=== PATIENT | female | born 1935 | race Caucasian/White ===

== ENCOUNTER 2017-02-28 13:30 | Emergency (ER) | payer MEDICARE ==
[~2017-02-28] VITALS: Ht 167.6 cm; Wt 68.0 kg
[~2017-02-28 13:30] MED LIST: ASPI81 PO; ATEN1TAB75; GLUCTAB PO; GLYB1TAB51 PO; LISI10TA PO; PROVASTATIN PO; TAB-TAB PO; co q 10 PO
[2017-02-28 14:02] VITALS: BP 151/68; PULSE 62; RESP 16; TEMP 98.3; O2SAT 92
[2017-02-28] MEDS ORDERED: ATEN100T PO ×2 (14:22→19:19)
[2017-02-28] MEDS ORDERED: ASPI81CH CHEW (14:22)
[2017-02-28] MEDS ORDERED: LISI10TA PO (14:23)
[2017-02-28] MEDS ORDERED: GLYB5TAB3 PO ×2 (14:23→19:19)
[2017-02-28] MEDS ORDERED: GLUCTAB PO (14:24)
--- NOTE | 2017-02-28 14:34 | PD ---
HPI Chief Complaint: Abnormal Results Time Seen by Provider: 14:19 Travel History International Travel<30 days: No Contact w/Intl Traveler<30days: No Traveled to known affect area: No History of Present Illness HPI This 81-year-old female was sent by Dr. Cabello is of a high potassium level. This lady is being treated for a urinary tract infection. She says she's been on medication for about 2 weeks. He was on Cipro for the first 3 or 4 days. The Cipro apparently is not working and she was changed to Bactrim. She is taken all except for 3 act from pills she had blood work done yesterday which showed her potassium to be 6.3. She was told to drink lots of fluids which she says she did. The blood was rechecked today and it was 6.6. She says that she has stage III kidney disease secondary to diabetes. She says that the burning and frequency which she had with a urinary tract infection has improved. She is on lisinopril and atenolol for hypertension, glyburide and metformin for diabetes PFSH Past Medical History Anemia: Yes Heart Rhythm Problems: No Cancer: No Cardiac Catheterization: No Cardiovascular Problems: No High Cholesterol: No Congestive Heart Failure: No Diabetes: No Diminished Hearing: No Glaucoma: No Hepatitis: No Hiatal Hernia: No Hypertension: No Medical other: Yes (acid reflux) Myocardial Infarction: No Thyroid Disease: No Tetanus Vaccination: Unknown Influenza Vaccination: Yes Past Surgical History Coronary Artery Bypass Graft: No Eye Surgery: Yes (x2 vlad eye lid surgery) Pacemaker: No Other Surgery: Yes Social History Alcohol Use: No Tobacco Use: No Substance Use: No Allergies-Medications (Allergen,Severity, Reaction): Coded Allergies: Procardia (Verified Allergy, Severe, RACING HEART/FACIAL FLUSHING, 02/28/17 ) Reported Meds & Prescriptions Reported Meds & Active Scripts Active Reported Glucophage XR (Metformin HCl) 500 Mg Melania 500 Mg PO DAILY With evening meal Lisinopril-Hctz 10-12.5 Mg Tab 1 Tab PO DAILY Glyburide 5 Mg Tab 5 Mg PO DAILY Take with meals at the same time each day Aspirin 81 Mg Chew 81 Mg CHEW DAILY Atenolol 100 Mg Tab 100 Mg PO BID Review of Systems General / Constitutional: No: Fever, Chills Eyes: No: Diploplia, Blurred Vision HENT: No: Headaches, Vertigo Cardiovascular: No: Chest Pain or Discomfort, Palpitations Respiratory: No: Cough, Shortness of Breath Gastrointestinal: No: Nausea, Vomiting Genitourinary: Positive: Frequency Musculoskeletal: No: Myalgias, Arthralgias Physical Exam Narrative GENERAL: [-] SKIN: Focused skin assessment warm/dry. HEAD: Atraumatic. Normocephalic. EYES: Pupils equal and round. No scleral icterus. No injection or drainage. ENT: No nasal bleeding or discharge. Mucous membranes pink and moist. NECK: Trachea midline. No JVD. CARDIOVASCULAR: Regular rate and rhythm. No murmur appreciated. RESPIRATORY: No accessory muscle use. Clear to auscultation. Breath sounds equal bilaterally. GASTROINTESTINAL: Abdomen soft, non-tender, nondistended. Hepatic and splenic margins not palpable. MUSCULOSKELETAL: No obvious deformities. No clubbing. No cyanosis. No edema. NEUROLOGICAL: Awake and alert. No obvious cranial nerve deficits. Motor grossly within normal limits. Normal speech. PSYCHIATRIC: Appropriate mood and affect; insight and judgment normal. Data Data Last Documented VS Vital Signs Date Time Temp Pulse Resp B/P Pulse Ox O2 Delivery O2 Flow Rate FiO2 02/28/17 14:25 16 99 Room Air 02/28/17 14:02 98.3 62 151/68 Orders Electrocardiogram (02/28/17 14:31) Complete Blood Count With Diff (02/28/17 14:31) Basic Metabolic Panel (Bmp) (02/28/17 14:31) Urinalysis - C+S If Indicated (02/28/17 14:31) Sodium Chlorid 0.9% 500 Ml Inj (Ns 500 M (02/28/17 14:45) Sodium Polysty Sulfate Liq (Kayexalate L (02/28/17 15:30) Sorbitol 70% Liq (Sorbitol 70% Liq) (02/28/17 15:30) Insulin Human Regular Inj (Novolin R Inj (02/28/17 15:30) Furosemide Inj (Lasix Inj) (02/28/17 15:30) Urine Culture (02/28/17 15:10) Dextrose 50% In Jarred (Vial) Inj (D50w (Vi (02/28/17 15:45) Labs Laboratory Tests Test 4/20/17 4/20/17 14:27 15:10 White Blood Count 7.5 TH/MM3 Red Blood Count 4.28 MIL/MM3 Hemoglobin 13.1 GM/DL Hematocrit 39.4 % Mean Corpuscular Volume 92.0 FL Mean Corpuscular Hemoglobin 30.7 PG Mean Corpuscular Hemoglobin 33.4 % Concent Red Cell Distribution Width 13.0 % Platelet Count 230 TH/MM3 Mean Platelet Volume 8.6 FL Neutrophils (%) (Auto) 64.0 % Lymphocytes (%) (Auto) 28.3 % Monocytes (%) (Auto) 5.0 % Eosinophils (%) (Auto) 2.3 % Basophils (%) (Auto) 0.4 % Neutrophils # (Auto) 4.8 TH/MM3 Lymphocytes # (Auto) 2.1 TH/MM3 Monocytes # (Auto) 0.4 TH/MM3 Eosinophils # (Auto) 0.2 TH/MM3 Basophils # (Auto) 0.0 TH/MM3 CBC Comment DIFF FINAL Differential Comment Sodium Level 134 MEQ/L Potassium Level 6.5 MEQ/L Chloride Level 102 MEQ/L Carbon Dioxide Level 26.5 MEQ/L Anion Gap 6 MEQ/L Blood Urea Nitrogen 24 MG/DL Creatinine 1.40 MG/DL Estimat Glomerular Filtration 36 ML/MIN Rate Random Glucose 299 MG/DL Calcium Level 10.0 MG/DL Urine Color YELLOW Urine Turbidity CLEAR Urine pH 6.0 Urine Specific [place] 1.012 Urine Protein NEG mg/dL Urine Glucose (UA) 100 mg/dL Urine Ketones NEG mg/dL Urine Occult Blood NEG Urine Nitrite NEG Urine Bilirubin NEG Urine Leukocyte Esterase MOD Urine RBC 0-3 /hpf Urine WBC 15-19 /hpf Urine WBC Clumps FEW Urine Squamous Epithelial 0-5 /hpf Cells Urine Bacteria RARE /hpf Microscopic Urinalysis Comment CULTURE INDICATED [facility] Medical Decision Making Medical Screen Exam Complete: Yes Emergency Medical Condition: Yes Medical Record Reviewed: Yes Differential Diagnosis dIFFERENTIAL includes hyperkalemia, renal failure, Narrative Course Potassium today is 6.5. EKG shows a sinus rhythm there are t waves. She has been given fluids and Lasix. Case discussed with Dr. Colon Diagnosis Primary Impression: Hyperkalemia Hector Khan MD Feb 28, 2017 14:34 Hector Khan MD Feb 28, 2017 14:34
[2017-02-28] MEDS ORDERED: SODIUM CHLORID 0.9% 500 ML INJ 500 ML IV ONE ×2 (14:45→16:30)
[2017-02-28 15:14] LABS: AUTOMATED NEUTROPHIL # 4.8 TH/MM3 (1.8-7.7); BASOPHIL % 0.4 % (0.0-2.0); EOSINOPHIL # 0.2 TH/MM3 (0-0.4); EOSINOPHIL % 2.3 % (0.0-4.0); HEMATOCRIT 39.4 % (35.0-46.0); HEMO FLAGS DIFF FINAL; LYMPH % 28.3 % (9.0-44.0); LYMPHOCYTE # 2.1 TH/MM3 (1.0-4.8); MEAN CORPUSCULAR HEMOGLOBIN 30.7 PG (27.0-34.0); MEAN CORPUSCULAR HGB CONC 33.4 % (32.0-36.0); PLATELET COUNT 230 TH/MM3 (150-450); RED BLOOD COUNT 4.28 MIL/MM3 (4.00-5.30); WHITE BLOOD COUNT 7.5 TH/MM3 (4.0-11.0)
[2017-02-28 15:21] LABS: POTASSIUM 6.5 MEQ/L (3.5-5.1)
[2017-02-28 15:21] LABS: BLOOD, URINE NEG (NEG); GLUCOSE,URINE 100 mg/dL (NEG); KETONE, URINE NEG (NEG); NITRITE,URINE NEG (NEG)
[2017-02-28 15:25] LABS: BICARBONATE 26.5 MEQ/L (21.0-32.0)
[2017-02-28] MEDS ORDERED: INSULIN HUMAN REGULAR 1,000 UNITS/10 ML VIAL SQ ONE (15:30)
[2017-02-28] MEDS ORDERED: SORBITOL 70% SOLN 30 ML CUP PO ONE (15:30)
[2017-02-28] MEDS ORDERED: DEXTROSE 50% IN WATER 50 ML SYRINGE IV ONE (15:30)
[2017-02-28] MEDS ORDERED: FUROSEMIDE 20 MG/2 ML VIAL IV PUSH ONE (15:30)
[2017-02-28] MEDS ORDERED: SODIUM POLYSTYRENE SULFONATE SUSP 15 GM/60 ML CUP PO ONE (15:30)
[2017-02-28 15:34] LABS: URINE COLOR YELLOW (YELLW/STRAW)
[2017-02-28 15:36] LABS: BACTERIA, URINE RARE /hpf; COMMENT (UR) CULTURE INDICATED; CULTURE IF INDICATED CULTURE INDICATED; RBC, URINE 0-3 /hpf (0-3); SQUAMOUS EPITHELIAL CELL URINE 0-5 /hpf (0-5); WBC, URINE 15-19 /hpf (0-5)
[2017-02-28] MEDS ORDERED: DEXTROSE 50% IN WATER 50 ML VIAL(D50) IV PUSH ONE (15:45)
[2017-02-28 16:27] VITALS: BP 146/65; PULSE 61; RESP 15; O2SAT 99
--- NOTE | 2017-02-28 16:27 | HHI.PR ---
Subjective Remarks Pt examined in ER. She was sent by PCP for elevated K+ of 6.6 with renal insuff as outpt. Of note she has been on Cipro for a couple of days followed by Bactrim for appx 5 days due to UTI. UTI symptoms have been responding to abx, but she was noted to have some renal insuff with K+ 6.3 yesterday. Repeat K+ 6.6 today as outpt. She was thus sent to ER. She denies palpitations, CP or other cardiac symptoms. Still has some slight dysuria. Pt also on LEVI-I. She has been given IVF, insulin, D5, Kayexalate and lasix in ER per ER MD. She appears quite comfortable. Objective Vitals GENERAL: nad, a/o, cooperative. SKIN: Warm and dry. HEAD: Normocephalic. EYES: No scleral icterus. No injection or drainage. chronic ptosis right, ectropion left NECK: Supple, trachea midline. No JVD or lymphadenopathy. CARDIOVASCULAR: Regular rate and rhythm without murmurs, gallops, or rubs. RESPIRATORY: Breath sounds equal bilaterally. No accessory muscle use. GASTROINTESTINAL: Abdomen soft, non-tender, nondistended. MUSCULOSKELETAL: No cyanosis, or edema. BACK: Nontender without obvious deformity. No CVA tenderness. Vital Signs Date Time Temp Pulse Resp B/P Pulse Ox O2 Delivery O2 Flow Rate FiO2 02/28/17 14:25 16 99 Room Air 02/28/17 14:02 98.3 62 16 151/68 92 Result Diagram: 02/28/17 1427 02/28/17 1427 Urinary Catheter: No Vascular Central Line Catheter: No A/P Problem List: (1) Hyperkalemia Status: Acute Plan: Likely due to Bactrim induced TOBIAS and use of LEVI-I. No symptoms and EKG OK. Will try more IVF and repeat K+ in a few hrs. If improved, will d/c from ER with close outpt f/u with PCP. Case d/w Dr Avina and Dr Nurys Guerrier. Farzad Colon MD PhD Feb 28, 2017 16:27
[2017-02-28 18:42] VITALS: BP 137/55; PULSE 63; RESP 15
[2017-02-28 19:07] LABS: BICARBONATE 27.3 MEQ/L (21.0-32.0); POTASSIUM 5.3 MEQ/L (3.5-5.1)
[2017-02-28 19:10] VITALS: BP 118/71; PULSE 69; RESP 15; O2SAT 95
--- NOTE | 2017-02-28 19:22 | PD ---
Physical Exam Date Seen by Provider: Feb 28, 2017 Time Seen by Provider: 16:15 Narrative Pt seen and examined per progress note. F/U labs improved including K+ of 5.3 and Cr 1.3. Discussed with Dr Guerrier and Dr Cabello. Pt has appt with Dr Cabello tomorrow at 9:15 AM. Data Data Last Documented VS Vital Signs Date Time Temp Pulse Resp B/P Pulse Ox O2 Delivery O2 Flow Rate FiO2 02/28/17 19:10 69 15 118/71 95 Room Air 02/28/17 14:02 98.3 Orders Electrocardiogram (02/28/17 14:31) Complete Blood Count With Diff (02/28/17 14:31) Basic Metabolic Panel (Bmp) (02/28/17 14:31) Urinalysis - C+S If Indicated (02/28/17 14:31) Sodium Chlorid 0.9% 500 Ml Inj (Ns 500 M (02/28/17 14:45) Sodium Polysty Sulfate Liq (Kayexalate L (02/28/17 15:30) Sorbitol 70% Liq (Sorbitol 70% Liq) (02/28/17 15:30) Insulin Human Regular Inj (Novolin R Inj (02/28/17 15:30) Furosemide Inj (Lasix Inj) (02/28/17 15:30) Urine Culture (02/28/17 15:10) Dextrose 50% In Jarred (Vial) Inj (D50w (Vi (02/28/17 15:45) Sodium Chlorid 0.9% 500 Ml Inj (Ns 500 M (02/28/17 16:30) Basic Metabolic Panel (Bmp) (02/28/17 18:30) Labs Laboratory Tests Test 02/28/17 02/28/17 02/28/17 14:27 15:10 18:25 White Blood Count 7.5 TH/MM3 Red Blood Count 4.28 MIL/MM3 Hemoglobin 13.1 GM/DL Hematocrit 39.4 % Mean Corpuscular Volume 92.0 FL Mean Corpuscular Hemoglobin 30.7 PG Mean Corpuscular Hemoglobin 33.4 % Concent Red Cell Distribution Width 13.0 % Platelet Count 230 TH/MM3 Mean Platelet Volume 8.6 FL Neutrophils (%) (Auto) 64.0 % Lymphocytes (%) (Auto) 28.3 % Monocytes (%) (Auto) 5.0 % Eosinophils (%) (Auto) 2.3 % Basophils (%) (Auto) 0.4 % Neutrophils # (Auto) 4.8 TH/MM3 Lymphocytes # (Auto) 2.1 TH/MM3 Monocytes # (Auto) 0.4 TH/MM3 Eosinophils # (Auto) 0.2 TH/MM3 Basophils # (Auto) 0.0 TH/MM3 CBC Comment DIFF FINAL Differential Comment Sodium Level 134 MEQ/L 138 MEQ/L Potassium Level 6.5 MEQ/L 5.3 MEQ/L Chloride Level 102 MEQ/L 105 MEQ/L Carbon Dioxide Level 26.5 MEQ/L 27.3 MEQ/L Anion Gap 6 MEQ/L 6 MEQ/L Blood Urea Nitrogen 24 MG/DL 22 MG/DL Creatinine 1.40 MG/DL 1.30 MG/DL Estimat Glomerular Filtration 36 ML/MIN 39 ML/MIN Rate Random Glucose 299 MG/DL 159 MG/DL Calcium Level 10.0 MG/DL 9.4 MG/DL Urine Color YELLOW Urine Turbidity CLEAR Urine pH 6.0 Urine Specific [place] 1.012 Urine Protein NEG mg/dL Urine Glucose (UA) 100 mg/dL Urine Ketones NEG mg/dL Urine Occult Blood NEG Urine Nitrite NEG Urine Bilirubin NEG Urine Leukocyte Esterase MOD Urine RBC 0-3 /hpf Urine WBC 15-19 /hpf Urine WBC Clumps FEW Urine Squamous Epithelial 0-5 /hpf Cells Urine Bacteria RARE /hpf Microscopic Urinalysis Comment CULTURE INDICATED MDM Medical Record Reviewed: Yes Supervised Visit with FOREST: No Physician Communication Physician Communication Discussed with Dr Guerrier, Dr Avina and Dr Cabello Diagnosis Primary Impression: Hyperkalemia Additional Impression: TOBIAS (acute kidney injury) Patient Instructions: 4 Gram Sodium Diet (GEN), General Instructions, Hyperkalemia (ED) Departure Forms: Tests/Procedures Additional Instruction: See Dr Cabello tomorrow AM at 9:15. She may want to add different antibiotic. Hold lisinopril. Observe low potassium diet. Scripts Glyburide 5 Mg Tab5 Mg PO DAILY #30 TAB Ref 0 Take with meals at the same time each day Prov:Farzad Colon MD PhD 02/28/17 Atenolol 100 Mg [id number] Mg PO BID #60 TAB Ref 0 Prov:Farzad Colon MD PhD 02/28/17 Disposition: 01 DISCHARGE HOME Condition: Stable Farzad Colon MD PhD Feb 28, 2017 19:22
[2017-02-28 20:44] VITALS: BP 116/72
--- NOTE | 2017-03-01 18:55 | EKG ---
Date Performed: 02/28/2017 Time Performed: 14:51:06 PTAGE: 81 years EKG: Sinus rhythm with borderline 1st degree A-V block Left axis deviation Poor R wave progression - probable normal v ariant Inferior and anterior T wave changes are nonspecific Low QRS voltages in precordial leads Bord polo ECG Compared to prior tracing no significant change PREVIOUS TRACING : 03/07/2010 09.38 DOCTOR: Tj Staples Interpretating Date/Time 03/01/2017 18:54:05
== END 2017-02-28 20:30 | disposition home or self-care (01) ==
LOC: PHED 13:30
DX: E87.5 Hyperkalemia (principal); N17.9 Acute kidney failure, unspecified; E11.9 Type 2 diabetes mellitus without complications; N18.3 Chronic kidney disease, stage 3 (moderate); N39.0 Urinary tract infection, site not specified; I10 Essential (primary) hypertension; Z79.84 Long term (current) use of oral hypoglycemic drugs; D64.9 Anemia, unspecified; K21.9 Gastro-esophageal reflux disease without esophagitis; I44.0 Atrioventricular block, first degree
CPT/HCPCS: 80048; 81001; 85025; 87086; 93005; 96361; 96372; 96374; 96375; 99285; J1815; J1940; J7040

== ENCOUNTER 2018-04-14 11:04 | Emergency (ER) | payer MEDICARE, OTHER ==
[~2018-04-14] VITALS: Ht 167.6 cm; Wt 65.0 kg
[~2018-04-14 11:04] MED LIST changes: +ASPI-516 CHEW; -ASPI81 PO; +ATEN100T PO; -ATEN1TAB75; -GLUCTAB PO; -GLYB1TAB51 PO; +GLYB5TAB3 PO; -LISI10TA PO; -PROVASTATIN PO; -TAB-TAB PO; -co q 10 PO
[2018-04-14 11:07] VITALS: BP 164/70; PULSE 78; RESP 16; TEMP 97.5; O2SAT 94
[2018-04-14] MEDS ORDERED: METF1000 PO (11:18)
[2018-04-14] MEDS ORDERED: GLIP5TAB8 PO (11:18)
[2018-04-14] MEDS ORDERED: CHOLESTEROL MED (11:18)
[2018-04-14] MEDS ORDERED: LEVO25TA4 PO (11:18)
[2018-04-14] MEDS ORDERED: HYDR12.57 PO (11:18)
--- NOTE | 2018-04-14 11:41 | PD ---
HPI Chief Complaint: Foreign Body Time Seen by Provider: 11:22 Travel History International Travel<30 days: No Contact w/Intl Traveler<30days: No Traveled to known affect area: No History of Present Illness HPI 82 old female here with right heel pain. Patient reports this morning she noticed while walking she has mild right heel pain only with weightbearing. She has history of diabetic neuropathy and is concerned she may have stepped on something and has a retained foreign body. No fever chills. No swelling of the foot. Pain is produced with weightbearing only in the heel and resolved with rest. She was told in the past that lateral foot wound should be looked at because of her diabetes before she came in. PFSH Past Medical History Hx Anticoagulant Therapy: No Anemia: Yes Heart Rhythm Problems: No Cancer: No Cardiac Catheterization: No Cardiovascular Problems: Yes (HTN, CHOL) High Cholesterol: No Congestive Heart Failure: No Diabetes: Yes Patient Takes Glucophage: Yes Diminished Hearing: No Glaucoma: No Hepatitis: No Hiatal Hernia: No Hypertension: No Medical other: Yes (acid reflux) Immunizations Current: Yes Myocardial Infarction: No Thyroid Disease: No ?: Not Past Surgical History Coronary Artery Bypass Graft: No Eye Surgery: Yes (x2 vlad eye lid surgery) Pacemaker: No Other Surgery: Yes Social History Alcohol Use: No Tobacco Use: No Substance Use: No Allergies-Medications (Allergen,Severity, Reaction): Coded Allergies: nifedipine (Unverified Allergy, Severe, RACING HEART/FACIAL FLUSHING, ) Reported Meds & Prescriptions Reported Meds & Active Scripts Active Atenolol 100 Mg Tab 100 Mg PO BID Reported [Cholesterol Med] Levothyroxine (Levothyroxine Sodium) 25 Mcg Tab Unknown Dose PO DAILY Hydrochlorothiazide 12.5 Mg Cap Unknown Dose PO DAILY Glipizide 5 Mg Tab Unknown Dose PO BIDAC Take 30 minutes before a meal Metformin (Metformin HCl) 1,000 Mg Tab 1,000 Mg PO BIDPC Review of Systems Except as stated in HPI: all other systems reviewed are Neg General / Constitutional: No: Fever Physical Exam Narrative GENERAL: Alert and well-appearing 82-year-old female. SKIN: Warm and dry. HEAD: Normocephalic. EYES: No injection or drainage. NECK: Supple CARDIOVASCULAR: Regular rate and rhythm RESPIRATORY: Breath sounds equal bilaterally. No accessory muscle use. MUSCULOSKELETAL: No cyanosis. Right foot: No bony or soft tissue tenderness to palpation. No swelling of the foot. Normal coloration. No erythema, open wounds, evidence of puncture. Small 3 mm dry scab to the right heel medial aspect with no surrounding erythema, fluctuance, induration, drainage. The scab is easily removed to reveal well-healed skin below. No evidence of infection. The area is not tender. palpable DP pulse. Data Data Last Documented VS Vital Signs Date Time Temp Pulse Resp B/P (MAP) Pulse Ox O2 Delivery O2 Flow Rate FiO2 04/14/18 11:07 97.5 78 16 164/70 (101) 94 Orders Orders Foot, Limited (2vws) (04/14/18 ) MDM Medical Decision Making Medical Screen Exam Complete: Yes Emergency Medical Condition: Yes Differential Diagnosis Retained foreign body, wound infection, abscess/cellulitis Narrative Course 82-year-old female here with right heel pain with weightbearing. X-rays negative for radiopaque foreign body. She has no evidence of infection or puncture wound. She was encouraged to follow-up with her primary doctor if symptoms persisted over the next several days. Diagnosis Primary Impression: Foot pain Qualified Codes: M79.671 - Pain in right foot Referrals: Primary Care Physician Additional Instructions: Follow-up with her primary doctor for recheck this week if her symptoms persist Disposition: 01 DISCHARGE HOME Condition: Stable Inessa Robbins Apr 14, 2018 11:41
--- NOTE | 2018-04-14 12:08 | RADRPT ---
EXAM DATE: 04/14/2018 11:47 AM EDT AGE/SEX: 82 years / Female INDICATIONS: Foreign body. Possible wood chip in heel CLINICAL DATA: This is the patient's initial encounter. Patient reports that signs and symptoms have been present for 1 day and indicates a pain score of 6/10. MEDICAL/SURGICAL HISTORY: None. None. COMPARISON: No prior [place] exams available for comparison. FINDINGS: Bony structures are intact and in normal alignment. Osseous density is normal. Soft tissues are unre markable. No radiopaque foreign bodies seen. CONCLUSION: No fracture or radiopaque foreign body. Electronically signed by: Yuriy Payan MD 04/14/2018 12:07 PM EDT
== END 2018-04-14 12:32 | disposition home or self-care (01) ==
LOC: PHEFT 11:04
DX: M79.671 Pain in right foot (principal); E11.40 Type 2 diabetes mellitus with diabetic neuropathy, unspecified; I10 Essential (primary) hypertension; K21.9 Gastro-esophageal reflux disease without esophagitis
CPT/HCPCS: 73620; 99283